=== PATIENT | male | born 1960 ===

== ENCOUNTER → 2018-09-20 | Outpatient (REF) ==
--- NOTE | 2018-09-20 13:54 | REP ---
Clinical: Pain and disability. Technique: AP, lateral, bilateral oblique views of the left knee. Findings: Early advanced tricompartmental osteoarthritic degenerative changes include subchondral sclerosis, osteophytosis, and joint space narrowing. Suprapatellar effusion cannot be excluded. No acute fracture dislocation. Impression: Early advanced tricompartmental osteoarthritic degenerative changes. Electronically Signed by Nirav Kiran MD 09/20/2018 01:45 P
== END ==
LOC: M SMT 13:15
PROVIDERS: ATTEND Internal Medicine
DX: M17.12 Unilateral primary osteoarthritis, left knee (principal)